=== PATIENT | female | born 1965 | race Caucasian/White ===

== ENCOUNTER → 2017-08-02 | Outpatient (CLI) | payer MEDICARE, MEDICAID ==
--- NOTE | 2017-08-02 16:04 | WOMENS IMAGING REPORT ---
EXAM DESCRIPTION: BILAT SCREENING MAMMO W/CAD COMPLETED DATE/TIME: 08/02/2017 1:20 pm REASON FOR STUDY: ROUTINE SCREENING; Z12.31 Z12.31 ENCNTR SCREEN MAMMOGRAM FOR MALIGNANT NEOPLASM O F [place] COMPARISON: 07/25/2016 TECHNIQUE: Standard craniocaudal and mediolateral oblique views of each breast recorded using [employer] acquisition. LIMITATIONS: None. FINDINGS: Findings present which are benign by mammographic criteria. No suspicious masses, calcifi cations or architectural distortion. Pertinent benign findings: Benign bilateral breast calcifications. Stable bilateral breast nodules. Read with the assistance of CAD. .[facility] - R2 Cenova Version 1.3 .[facility] - R2 Cenova Version 1.3 .[facility] - R2 Cenova Version 2.4 .[facility] [place] [place] - R2 Cenova Version 2.4 .[facility] - R2 [employer] Machine Operator Version 9.2 Benign mammographic findings may include one or more of the following: Smooth masses, popcorn/rim/co arse calcifications, asymmetries, post-procedure changes, and lesions with long-standing stability. IMPRESSION: BENIGN MAMMOGRAPHIC FINDINGS. BIRADS 2 BREAST DENSITY: c. The breasts are heterogeneously dense, which may obscure small masses. BIRAD: 2 BENIGN FINDING(S) RECOMMENDATION: ROUTINE SCREENING Please consider bilateral screening tomosynthesis in July 2018 COMMENT: The patient has been notified of the results by letter per SA requirements. Additional no tification policies are in place for contacting patient with suspicious or incomplete findings. Quality ID #[id number]: The [employer] recommends an annual screening mammogram for women aged 40 years or over. This facility utilizes a reminder system to ensure that all patients receive reminder letters, and/or direct phone calls for appointments. This includes reminders for routine scr eening mammograms, diagnostic mammograms, or other Breast Imaging Interventions when appropriate. Th is patient will be placed in the appropriate reminder system. The [employer] (ACR) has developed recommendations for screening MRI of the breast s in certain patient populations, to be used in conjunction with mammography. Breast MRI surveillanc e may be appropriate for women with more than 20% lifetime risk of developing breast cancer as deter mined by genetic testing, significant family history of the disease, or history of mantle radiation f or Hodgkins Disease. ACR Practice Guidelines 2008. TECHNICAL DOCUMENTATION: FINDING NUMBER: (1) ASSESSMENT: (1) JOB ID: [id number] [employer]- All Rights Reserved
== END ==
LOC: WI 13:09
PROVIDERS: ATTEND Family Medicine
DX: Z12.31 Encounter for screening mammogram for malignant neoplasm of breast (principal)
CPT/HCPCS: 77067; G0202

== ENCOUNTER → 2017-09-17 | Outpatient (CLI) | payer MEDICARE, MEDICAID ==
--- NOTE | 2017-09-17 16:22 | RADIOLOGY REPORT (SQ) ---
EXAM DESCRIPTION: ABDOMEN 2 VIEWS COMPLETED DATE/TIME: 09/17/2017 2:49 pm REASON FOR STUDY: DIARRHEA (R19.7) R19.7 DIARRHEA, UNSPECIFIED COMPARISON: Abdominal films 09/12/2015 NUMBER OF VIEWS: Two views. TECHNIQUE: Supine and upright radiographic images of the abdomen acquired. LIMITATIONS: None. FINDINGS: FREE AIR: None. No abnormal gas collections. LUNG BASES: Clear. BOWEL GAS PATTERN: Nonobstructive pattern. No dilated loops or air fluid levels. CALCIFICATIONS: No suspicious calcifications. SOFT TISSUES: No gross mass or suggestion of organomegaly. HARDWARE: None in the abdomen. BONES: Convex leftward lower thoracic/ upper lumbar curvature OTHER: No other significant finding. IMPRESSION: Nonobstructive bowel gas pattern TECHNICAL DOCUMENTATION: JOB ID: [id number] [employer]- All Rights Reserved
== END ==
LOC: RAD 14:33
PROVIDERS: ATTEND Family Medicine
DX: R19.7 Diarrhea, unspecified (principal)
CPT/HCPCS: 74020

== ENCOUNTER 2017-11-14 05:40 | Emergency (ER) | payer MEDICARE, MEDICAID ==
[2017-11-14] MEDS ORDERED: NORMAL SALINE 1000 ML 1,000 ML IV PRN (06:19)
--- NOTE | 2017-11-14 06:19 | ER Document Report ---
ED General - General Chief Complaint: Nausea/Vomiting Stated Complaint: VOMITING BLOOD Time Seen by Provider: 11/14/17 06:19 Mode of Arrival: Ambulatory Information source: Patient, Parent Notes: 51-year-old female history of mental retardation presents with complaints of vomiting dark blood twice overnight. Mother notes this is happened 2 times prior once requiring transfusion. Patient had an endoscopy and no source of the bleeding was noted. mother did note she has an ulcer TRAVEL OUTSIDE OF THE [place] IN LAST 30 DAYS: No - HPI Onset: Yesterday Onset/Duration: Sudden Quality of pain: No pain Severity: Mild Pain Level: Denies Associated symptoms: Nausea, Vomiting Exacerbated by: Denies Relieved by: Denies Similar symptoms previously: Yes Recently seen / treated by doctor: Yes - Related Data Allergies/Adverse Reactions: No Known Allergies Allergy (Verified 09/12/15 12:36) Past Medical History - Social History Smoking Status: Never Smoker Cigarette use (# per day): No Chew tobacco use (# tins/day): No Smoking Education Provided: No Family History: Reviewed & Not Pertinent - Past Medical History Cardiac Medical History: Reports: Hx Hypertension Neurological Medical History: Denies: Hx Seizures Malignancy Medical History: Reports: Hx Ovarian Cancer GI Medical History: Reports: Hx Ulcer Past Surgical History: Reports: Hx Abdominal Surgery - hernia, Hx Hysterectomy Review of Systems - Review of Systems Notes: REVIEW OF SYSTEMS: CONSTITUTIONAL : Denies fever, chills, or sweats. Denies recent illness. EENT: Denies eye, ear, throat, or mouth pain or symptoms. Denies nasal or sinus congestion or discharge. Denies throat, tongue, or mouth swelling or difficulty swallowing. CARDIOVASCULAR: Denies chest pain. Denies palpitations or racing or irregular heart beat. Denies ankle edema. RESPIRATORY: Denies cough, cold, or chest congestion. Denies shortness of breath, difficulty breathing, or wheezing. GASTROINTESTINAL: admits ot vomiting blood 2 times dark blood GENITOURINARY: Denies difficulty urinating, painful urination, burning, frequency, blood in urine, or discharge. FEMALE GENITOURINARY: Denies vaginal bleeding, heavy or abnormal periods, irregular periods. Denies vaginal discharge or odor. MUSCULOSKELETAL: Denies back or neck pain or stiffness. Denies joint pain or swelling. SKIN: Denies rash, lesions or sores. HEMATOLOGIC : Denies easy bruising or bleeding. LYMPHATIC: Denies swollen, enlarged glands. NEUROLOGICAL: Denies confusion or altered mental status. Denies passing out or loss of consciousness. Denies dizziness or lightheadedness. Denies headache. Denies weakness or paralysis or loss of use of either side. Denies problems with gait or speech. Denies sensory loss, numbness, or tingling. Denies seizures. PSYCHIATRIC: Denies anxiety or stress. Denies depression, suicidal ideation, or homicidal ideation. ALL OTHER SYSTEMS REVIEWED AND NEGATIVE. PHYSICAL EXAMINATION: GENERAL: Well-appearing, well-nourished and in no acute distress. HEAD: Atraumatic, normocephalic. EYES: Pupils equal round and reactive to light, extraocular movements intact, conjunctiva are normal. ENT: Nares patent, oropharynx clear without exudates. Moist mucous membranes. NECK: Normal range of motion, supple without lymphadenopathy LUNGS: Breath sounds clear to auscultation bilaterally and equal. No wheezes rales or rhonchi. HEART: tachycardic ABDOMEN: Soft, nontender, nondistended abdomen. No guarding, no rebound. No masses appreciated. Female : deferred Musculoskeletal: Normal range of motion, no pitting or edema. No cyanosis. NEUROLOGICAL: Cranial nerves grossly intact. baseline mentation PSYCH: Normal mood, normal affect. SKIN: pale appearing Dictation was performed using [employer] voice recognition software Physical Exam - Vital signs Vitals: Temp Pulse Resp BP Pulse Ox 98.5 F 126 H 20 118/66 93 11/14/17 05:45 11/14/17 05:45 11/14/17 05:45 11/14/17 05:45 11/14/17 05:45 Course - Re-evaluation Re-evalutation: 11/14/17 06:34 Patient immediately placed on monitor IV fluids started 11/14/17 07:55 Pt noted ot have hgb of 7.9, still tachycardic after fluids at 135, will transfuse 2 untis protonix has been ordered, no alcohol history. adam walden paged since we do not have GI 11/14/17 09:17 Dr Martinez awaiting for bed though 11/14/17 1245 Pt stable upon transfer - Vital Signs Vital signs: Temp Pulse Resp BP Pulse Ox 98.6 F 123 H 20 145/80 H 98 11/14/17 12:35 11/14/17 12:35 11/14/17 12:35 11/14/17 12:35 11/14/17 12:35 - Laboratory Result Diagrams: 11/14/17 07:08 11/14/17 07:08 Laboratory results interpreted by me: 11/14/17 11/14/17 11/14/17 07:08 07:08 07:08 RBC 3.30 L Hgb 7.9 L Hct 24.6 L MCV 75 L MCH 23.9 L RDW 16.0 H BUN 40 H Glucose 119 H Total Protein 5.7 L Crossmatch See Detail Critical Care Note - Critical Care Note Total time excluding time spent on procedures (mins): 57 Comments: 57 minutes of critical care time spent in direct contact evaluating and reevaluating the patient, treating symptoms, reviewing labs and studies and speaking with family and consultants excluding any procedures Discharge - Discharge Clinical Impression: Upper gastrointestinal bleed, Tachycardia Anemia Qualifiers: Anemia type: unspecified type Qualified Code(s): D64.9 - Anemia, unspecified Condition: Stable Disposition: [facility] Referrals: ARTURO SEGURA MD [Primary Care Provider] - Follow up as needed
[2017-11-14 07:28] LABS: ABSOLUTE LYMPHOCYTES (AUTO) 1.1 10^3/uL (0.5-4.7); ABSOLUTE MONOCYTES (AUTO) 0.4 10^3/uL (0.1-1.4); ABSOLUTE NEUT (AUTO) 4.2 10^3/uL (1.7-8.2); BASOPHILS % (AUTO) 0.8 % (0-2); EOSINOPHILS % (AUTO) 0.6 % (0-6); HEMATOCRIT 24.6 % (36.0-47.0); HGB HCT DIFFERENCE -0.9; MEAN CORPUSCULAR HEMOGLOBIN 23.9 pg (27.0-33.4); MEAN CORPUSCULAR VOLUME 75 fl (80-97); MONOCYTES % (AUTO) 6.9 % (3-13); SEGMENTED NEUTROPHILS % (AUTO) 72.7 % (42-78); WHITE BLOOD COUNT 5.7 10^3/uL (4.0-10.5)
[2017-11-14 07:47] LABS: HEMOGLOBIN 7.9 g/dL (12.0-15.5)
[2017-11-14] MEDS ORDERED: NORMAL SALINE 250 ML IV PRN ×2 (07:53)
[2017-11-14] MEDS ORDERED: PANTOPRAZOLE SODIUM 40 MG VIAL IV ONE (07:53)
[2017-11-14 07:57] LABS: ALANINE AMINOTRANSFERASE 24 U/L (9-52); ALBUMIN 3.5 g/dL (3.5-5.0); ALKALINE PHOSPHATASE 82 U/L (38-126); ANION GAP 8 (5-19); ASPARTATE AMINO TRANSFERASE 15 U/L (14-36); BILIRUBIN,DIRECT 0.1 mg/dL (0.0-0.4); BILIRUBIN,TOTAL 0.2 mg/dL (0.2-1.3); BLOOD UREA NITROGEN 40 mg/dL (7-20); CALCIUM 8.9 mg/dL (8.4-10.2); CARBON DIOXIDE 27 mmol/L (22-30); CHLORIDE 107 mmol/L (98-107); CREATININE RESULT 0.52 mg/dL (0.52-1.25); GLUCOSE 119 mg/dL (75-110); SODIUM 141.9 mmol/L (137-145); TOTAL PROTEIN 5.7 g/dL (6.3-8.2)
[2017-11-14] MEDS ORDERED: PANTOPRAZOLE SODIUM 40 MG VIAL IV PRN (07:58)
[2017-11-14 10:34] LABS: PROTHROMBIN TIME 13.6 SEC (11.4-15.4)
[2017-11-14 12:41] VITALS: BP 145/80
== END 2017-11-14 12:51 | disposition short-term general hospital (02) ==
LOC: ER 05:40
DX: K92.2 Gastrointestinal hemorrhage, unspecified (principal); K92.0 Hematemesis; D64.9 Anemia, unspecified; I10 Essential (primary) hypertension; Z85.43 Personal history of malignant neoplasm of ovary; R00.0 Tachycardia, unspecified
CPT/HCPCS: 99291; 96361; 96374; 86900; 86901; 36415; 36430; 86850; 85025; 85610; 80053; 86920; P9016; C9113; J7030; J7050; S0164

== ENCOUNTER → 2018-08-04 | Outpatient (CLI) | payer MEDICARE, MEDICAID ==
--- NOTE | 2018-08-04 14:17 | WOMENS IMAGING REPORT ---
EXAM DESCRIPTION: 3D SCREENING MAMMO BILAT COMPLETED DATE/TIME: 08/04/2018 10:24 am REASON FOR STUDY: SCREENING MAMMO Z12.31 ENCNTR SCREEN MAMMOGRAM FOR MALIGNANT NEOPLASM OF [place] COMPARISON: 2015, 2016 TECHNIQUE: Standard craniocaudal and mediolateral oblique views of each breast recorded using digita l acquisition and breast tomosynthesis. LIMITATIONS: None. FINDINGS: No masses, calcifications or architectural distortion. No areas of suspicion. Read with the assistance of CAD. .[facility] - R2 Cenova Version 1.3 .[facility] - R2 Cenova Version 1.3 .[facility] - R2 Cenova Version 2.4 .[facility] [place] - R2 Cenova Version 2.4 .[facility] - R2 Rot[employer] Dryer Operator Version 9.2 IMPRESSION: NORMAL MAMMOGRAM. BIRADS 1. BREAST DENSITY: b. There are scattered areas of fibroglandular density. BIRAD: 1 NEGATIVE RECOMMENDATION: ROUTINE SCREENING Please continue yearly bilateral screening tomosynthesis in July 2019 COMMENT: The patient has been notified of the results by letter per MQSA requirements. Additional no tification policies are in place for contacting patient with suspicious or incomplete findings. Quality ID #225: The [employer] recommends an annual screening mammogram for women aged 40 years or over. This facility utilizes a reminder system to ensure that all patients receive reminder letters, and/or direct phone calls for appointments. This includes reminders for routine scr eening mammograms, diagnostic mammograms, or other Breast Imaging Interventions when appropriate. Th is patient will be placed in the appropriate reminder system. The [employer] (ACR) has developed recommendations for screening MRI of the breast s in certain patient populations, to be used in conjunction with mammography. Breast MRI surveillanc e may be appropriate for women with more than 20% lifetime risk of developing breast cancer as deter mined by genetic testing, significant family history of the disease, or history of mantle radiation f or Hodgkins Disease. ACR Practice Guidelines 2008. DBT Technology DBT is a type of tomographic mammography. With conventional mammography, overlapping breast tissue ma y make lesions difficult to detect, even with good compression. DBT uses an x-ray tube that rotates a round the breast, taking images at different angles. These images are then combined to create thin sl ices of the breast that the radiologist can view as a 3D reconstruction. The [employer] unit can perform full-field digital mammograms (2D imaging); or DBT (3D imaging); or both, in a combination mode that quickly performs both the mammogram and the tomosynthesis scan while the breast is still compressed. PQRS 6045F: Fluoroscopic imaging is not utilized for breast tomosynthesis. TECHNICAL DOCUMENTATION: FINDING NUMBER: (1) ASSESSMENT: (1) JOB ID: [id number] [employer]- All Rights Reserved Reading location - IP/workstation name: [email or web address]
== END ==
LOC: WI 10:16
PROVIDERS: ATTEND Family Medicine
DX: Z12.31 Encounter for screening mammogram for malignant neoplasm of breast (principal)
CPT/HCPCS: 77063; 77067

== ENCOUNTER → 2019-10-19 | Outpatient (CLI) | payer MEDICARE, MEDICAID ==
--- NOTE | 2019-10-19 14:44 | WOMENS IMAGING REPORT ---
EXAM DESCRIPTION: 3D SCREENING MAMMO BILAT COMPLETED DATE/TIME: 10/19/2019 2:01 pm REASON FOR STUDY: Z12.31 ENCOUNTER FOR SCREENING MAMMOGRAM FOR MALIGNANT NEOPLASM OF BREAST Z12.31 ENCNTR SCREEN MAMMOGRAM FOR MALIGNANT NEOPLASM OF [place] COMPARISON: Multiple since 2016 EXAM PARAMETERS: Standard craniocaudal and mediolateral oblique views of each breast recorded using digital acquisition and breast tomosynthesis. Read with the assistance of CAD. .[facility] - [employer] Program Manager Version 9.2 LIMITATIONS: None. FINDINGS: RIGHT BREAST MASSES: Subcentimeter mammographic mass right breast far upper outer quadrant, about 8 cm from the ni pple for which additional diagnostic mammograms are recommended including right breast 90 mediolater al view, cone compression in the CC and MLO orientations. If this mass persists, then ultrasound wou ld be required for followup CALCIFICATIONS: No new or suspicious calcifications. ARCHITECTURAL DISTORTION: None. ASYMMETRY: None noted. OTHER: No other significant findings. LEFT BREAST MASSES: No suspicious masses. CALCIFICATIONS: No new or suspicious calcifications. ARCHITECTURAL DISTORTION: None. ASYMMETRY: None noted. OTHER: No other significant findings. IMPRESSION: No mammographic/ tomosynthesis evidence for malignancy left breast. Subcentimeter mammographic mass right breast upper outer quadrant 11 to 12 o'clock position, for whic h additional diagnostic mammograms and ultrasound are recommended 0 Incomplete: Needs Additional Imaging Evaluation and/or prior Mammograms for Comparison. BREAST DENSITY: b. There are scattered areas of fibroglandular density. BIRAD: ASSESSMENT: 0 Incomplete: Needs Additional Imaging Evaluation and/or prior Mammograms for C omparison. RECOMMENDATION: RECOMMENDED FOLLOW-UP: Additional right breast diagnostic mammograms and ultrasound The patient will be contacted for additional imaging. COMMENT: The patient has been notified of the results by letter per MQSA requirements. Additional no tification policies are in place for contacting patient with suspicious or incomplete findings. Quality ID #225: The [employer] recommends an annual screening mammogram for women aged 40 years or over. This facility utilizes a reminder system to ensure that all patients receive reminder letters, and/or direct phone calls for appointments. This includes reminders for routine scr eening mammograms, diagnostic mammograms, or other Breast Imaging Interventions when appropriate. Th is patient will be placed in the appropriate reminder system. TECHNICAL DOCUMENTATION: FINDING NUMBER: (1) ASSESSMENT: (1) JOB ID: [id number] [employer]- All Rights Reserved Reading location - IP/workstation name: [email or web address]
== END ==
LOC: WI 13:26
PROVIDERS: ATTEND Family Medicine
DX: Z12.31 Encounter for screening mammogram for malignant neoplasm of breast (principal)
CPT/HCPCS: 77063; 77067

== ENCOUNTER → 2019-10-28 | Outpatient (CLI) | payer MEDICARE, MEDICAID ==
--- NOTE | 2019-10-28 13:43 | WOMENS IMAGING REPORT ---
EXAM DESCRIPTION: RIGHT DIAGNOSTIC MAMMO W/CAD COMPLETED DATE/TIME: 10/28/2019 1:30 pm REASON FOR STUDY: N63.11 UNSPECIFIED LUMP IN THE RIGHT BREAST, UPPER OUTER QUADRANT N63.11 UNSPECIF IED LUMP IN THE RIGHT BREAST, UPPER OUTER IRVING COMPARISON: Digital tomosynthesis bilateral screening mammogram dated 10/19/2019 common 08/04/2018 an d digital bilateral screening mammograms dated 08/02/2017 and 07/25/2016. EXAM PARAMETERS: Standard craniocaudal and mediolateral oblique images of the breast recorded with d igital acquisition. Read with the assistance of CAD. .[facility] - R2 Capture Manager Version 9.2 LIMITATIONS: None. FINDINGS: BREAST LATERALITY: RIGHT MASSES: On the spot compression and additional views, the mass like area in the upper-outer quadrant of the breast appears to efface and represent glandular tissue. CALCIFICATIONS: No new or suspicious calcifications. ARCHITECTURAL DISTORTION: None. ASYMMETRY: None noted. OTHER: No other significant findings. IMPRESSION: 1. Stable mammographic appearance to the Right breast. BREAST DENSITY: b. There are scattered areas of fibroglandular density. BIRAD: ASSESSMENT: 2 Benign findings. RECOMMENDATION: 1. Routine screening mammogram. COMMENT: The patient has been notified of the results by letter per MQSA requirements. Additional no tification policies are in place for contacting patient with suspicious or incomplete findings. Quality ID #225: The [employer] recommends an annual screening mammogram for women aged 40 years or over. This facility utilizes a reminder system to ensure that all patients receive reminder letters, and/or direct phone calls for appointments. This includes reminders for routine scr eening mammograms, diagnostic mammograms, or other Breast Imaging Interventions when appropriate. Th is patient will be placed in the appropriate reminder system. TECHNICAL DOCUMENTATION: FINDING NUMBER: (1) ASSESSMENT: (1) JOB ID: [id number] [employer]- All Rights Reserved Reading location - IP/workstation name: [email or web address]
== END ==
LOC: WI 13:00
PROVIDERS: ATTEND Family Medicine
DX: N63.11 Unspecified lump in the right breast, upper outer quadrant (principal)
CPT/HCPCS: 77065

== ENCOUNTER 2020-12-06 15:59 | Inpatient (IN) | payer MEDICARE, MEDICAID ==
[2020-12-06 17:07] LABS: VENOUS BLOOD BASE EXCESS 3.4 mmol/L; VENOUS BLOOD HCO3 27.8 mmol/L (20-32); VENOUS BLOOD PCO2 41.7 mmHg (35-63); VENOUS BLOOD PH 7.44 (7.30-7.42)
[2020-12-06 17:11] LABS: ABSOLUTE LYMPHOCYTES (AUTO) 0.8 10^3/uL (0.5-4.7); ABSOLUTE MONOCYTES (AUTO) 0.2 10^3/uL (0.1-1.4); ABSOLUTE NEUT (AUTO) 1.8 10^3/uL (1.7-8.2); BASOPHILS % (AUTO) 0.5 % (0-2); EOSINOPHILS % (AUTO) 0.5 % (0-6); HEMATOCRIT 39.8 % (36.0-47.0); HEMOGLOBIN 13.5 g/dL (12.0-15.5); LYMPHOCYTES % (AUTO) 26.7 % (13-45); MEAN CORPUSCULAR HEMOGLOBIN 26.8 pg (27.0-33.4); MEAN CORPUSCULAR HGB CONC 33.8 g/dL (32.0-36.0); MEAN CORPUSCULAR VOLUME 79 fl (80-97); MONOCYTES % (AUTO) 6.8 % (3-13); PLATELET COUNT 135 10^3/uL (150-450); RED BLOOD COUNT 5.03 10^6/uL (3.72-5.28); RED CELL DISTRIBUTION WIDTH 14.1 % (11.5-14.0); SEGMENTED NEUTROPHILS % (AUTO) 65.5 % (42-78); TOTAL CELLS COUNTED % (AUTO) 100 %; WHITE BLOOD COUNT 2.8 10^3/uL (4.0-10.5)
[2020-12-06 17:24] LABS: CALCIUM 8.8 mg/dL (8.4-10.2)
[2020-12-06 17:25] LABS: ALBUMIN 3.5 g/dL (3.5-5.0); ALKALINE PHOSPHATASE 70 U/L (38-126); ASPARTATE AMINO TRANSFERASE 71 U/L (14-36); BILIRUBIN,DIRECT 0.2 mg/dL (0.0-0.4); BILIRUBIN,TOTAL 0.4 mg/dL (0.2-1.3); BLOOD UREA NITROGEN 20 mg/dL (7-20); GLUCOSE 101 mg/dL (75-110); POTASSIUM 4.1 mmol/L (3.6-5.0); TOTAL PROTEIN 6.2 g/dL (6.3-8.2)
--- NOTE | 2020-12-06 17:26 | ER Document Report ---
ED General - General Chief Complaint: Shortness Of Breath Stated Complaint: FEVER,COUGH Time Seen by Provider: 12/06/20 16:27 Information source: Patient, Relative - sister TRAVEL OUTSIDE OF THE [place] IN LAST 30 DAYS: No - HPI Notes: Patient is brought in by family secondary to shortness of breath and decreased oxygen saturation at home. Patient has a home pulse oximeter. Patient has mental delay and is brought in by family. Family states that the patient tested positive for Covid within the last week and that other family members are also positive. Patient has had a dry cough. Patient is had some diarrhea but no vomiting. She has had fevers up to 101 at home. - Related Data Allergies/Adverse Reactions: No Known Allergies Allergy (Verified 12/06/20 17:04) Past Medical History - General Information source: Patient, Relative - Sister - Social History Smoking Status: Never Smoker Frequency of alcohol use: None Drug Abuse: None Family History: Reviewed & Not Pertinent Patient has homicidal ideation: No - Past Medical History Cardiac Medical History: Reports: Hx Hypertension Neurological Medical History: Denies: Hx Seizures Renal/ Medical History: Denies: Hx Peritoneal Dialysis Malignancy Medical History: Reports: Hx Ovarian Cancer GI Medical History: Reports: Hx Ulcer Past Surgical History: Reports: Hx Abdominal Surgery - hernia, Hx Hysterectomy Review of Systems - Review of Systems Constitutional: Fever, Recent illness Cardiovascular: denies: Chest pain, Edema Respiratory: Cough, Short of breath -: Yes All other systems reviewed and negative Physical Exam - Vital signs Vitals: Temp Pulse Resp BP Pulse Ox 98.3 F 113 H 24 H 132/71 H 89 L 12/06/20 16:08 12/06/20 16:08 12/06/20 16:08 12/06/20 16:08 12/06/20 16:08 Interpretation: Tachycardic, Hypoxic - General General appearance: Alert In distress: Mild - HEENT Head: Normocephalic, Atraumatic Eyes: Normal Pupils: PERRL - Respiratory Respiratory status: Respiratory distress - mild Chest status: Nontender Breath sounds: Decreased air movement Chest palpation: Normal - Cardiovascular Rhythm: Tachycardia Heart sounds: Normal auscultation Murmur: No - Abdominal Inspection: Normal Distension: No distension Bowel sounds: Normal Tenderness: Nontender Organomegaly: No organomegaly - Back Back: Normal, Nontender - Extremities General upper extremity: Normal inspection, Nontender, Normal color, Normal ROM, Normal temperature General lower extremity: Normal inspection, Nontender, Normal color, Normal ROM, Normal temperature. No: Rosie's sign - Neurological Cognition: Confused [place] Coma Scale Eye Opening: Spontaneous [place] Coma Scale Verbal: Confused E[place] Coma Scale Motor: Obeys Commands [place] Coma Scale Total: 14 Speech: Normal - Psychological Associated symptoms: Agitated, Anxious - Skin Skin Temperature: Warm Skin Moisture: Dry Skin Color: Normal Course - Re-evaluation Re-evalutation: 12/06/20 17:23 Patient with developmental delay is brought in by family due to low oxygen saturations and shortness of breath. Patient has a known positive history of Covid with other family members being positive as well. Chest x-ray is consistent with Covid. Patient is tachypneic and hypoxic. She will require inpatient evaluation and treatment. - Vital Signs Vital signs: Temp Pulse Resp BP Pulse Ox 98.8 F 113 H 19 148/92 H 97 12/06/20 17:01 12/06/20 16:08 12/06/20 17:01 12/06/20 17:00 12/06/20 17:15 - Laboratory Results Result Diagrams: 12/06/20 16:58 12/06/20 16:58 Laboratory Results Interpreted: 12/06/20 12/06/20 12/06/20 16:58 16:58 16:58 WBC 2.8 L MCV 79 L MCH 26.8 L RDW 14.1 H Plt Count 135 L Fibrinogen VBG pH 7.44 H Carbon Dioxide 34 H Anion Gap 4 L AST 71 H ALT 40 H Total Protein 6.2 L 12/06/20 16:58 WBC MCV MCH RDW Plt Count Fibrinogen 499 H VBG pH Carbon Dioxide Anion Gap AST ALT Total Protein Critical Laboratory Results Reviewed: Yes Attending or Supervising Physician who Reviewed Labs: MERCEDES GHOSH - Radiology Results Critical Radiology Results Reviewed: Yes Attending or Supervising Physician who Reviewed Radiology: MERCEDES GHOSH Critical Care Note - Critical Care Note Total time excluding time spent on procedures (mins): 55 Comments: Approximately 55 minutes of critical care time were spent on this hypoxic, bilateral Covid pneumonia patient. This time is spent doing multiple patient reassessments. It was spent reviewing imaging and laboratory values. It is spent talking with multiple consultants and family. Discharge - Discharge Clinical Impression: Pneumonia due to COVID-19 virus Condition: Serious Disposition: ADMITTED INPATIENT Admitting Provider: Nancy (Hospitalist) Unit Admitted: [facility]
[2020-12-06 17:30] LABS: CARBON DIOXIDE 34 mmol/L (22-30); CHLORIDE 103 mmol/L (98-107)
[2020-12-06 17:32] LABS: ANION GAP 4 (5-19)
[2020-12-06 17:42] LABS: C-REACTIVE PROTEIN 41.2 mg/L (<10.0)
--- NOTE | 2020-12-06 17:44 | RADIOLOGY REPORT (SQ) ---
EXAM DESCRIPTION: CHEST SINGLE VIEW IMAGES COMPLETED DATE/TIME: 12/06/2020 5:07 pm REASON FOR STUDY: sob COMPARISON: 2014 EXAM PARAMETERS: NUMBER OF VIEWS: One view. TECHNIQUE: Single frontal radiographic view of the chest acquired. RADIATION DOSE: NA LIMITATIONS: None. FINDINGS: LUNGS AND PLEURA: Elevated left hemidiaphragm. There is focal opacification just above th e left hemidiaphragm. MEDIASTINUM AND HILAR STRUCTURES: No masses. Contour normal. HEART AND VASCULAR STRUCTURES: Heart normal in size. Normal vasculature. BONES: Scoliosis. HARDWARE: None in the chest. OTHER: No other significant finding. IMPRESSION: Elevated left hemidiaphragm. Cannot exclude a limited pneumonia in the left base. Scol iosis. TECHNICAL DOCUMENTATION: JOB ID: [id number] [employer]- All Rights Reserved Reading location - IP/workstation name: [email or web address]
[2020-12-06] MEDS ORDERED: ONDANSETRON HCL INJ/PF 4 MG/2 ML SDV IV PRN (18:20)
[2020-12-06] MEDS ORDERED: ACETAMINOPHEN 325 MG TABLET PO PRN (18:20)
[2020-12-06] MEDS ORDERED: LORAZEPAM 1 MG TABLET PO PRN (18:26)
[2020-12-06] MEDS ORDERED: LORAZEPAM INJ 2 MG/1 ML VIAL IV PRN (18:26)
--- NOTE | 2020-12-06 18:43 | PDOC H&P ---
History of Present Illness Admission Date/PCP: 12/06/20 17:51 ARTURO SEGURA MD Patient complains of: low oxygen level at home History of Present Illness: ISABEL FLOR is a 55 year old female with severe cognitive impairment, sinus tachycardia, hiatal hernia, anxiety who presents to the ED from home due to low oxygen saturation at home. She and the rest of her family all tested positive for Covid on 11/29/2020. At home, she has had a dry cough and fevers to 101 F. Her family states that she has a fast heart rate and respiratory rate at baseline. They have been checking her oxygen saturations at home on a pulse oximeter, and she was saturating 89% on RA at rest, so they brought her in to be evaluated. In the ED, she has tachycardia and tachypnea. O2 saturation was 87-89% on RA and improved to mid-90s on 2L via NC. CXR showed possible LLL infiltrate. Past Medical History Cardiac Medical History: Reports: Other - tachycardia Pulmonary Medical History: Reports: None EENT Medical History: Reports: None Neurological Medical History: Reports: None Denies: Seizures Endocrine Medical History: Reports: None Renal/ Medical History: Reports: None Malignancy Medical History: Reports: None, Ovarian Cancer GI Medical History: Reports: Hiatal Hernia Psychiatric Medical History: Reports: General Anxiety Disorder, Other - MR Traumatic Medical History: Reports: None Hematology: Reports: None Infectious Medical History: Reports: None Past Surgical History Past Surgical History: Reports: Hysterectomy Social History Information Source: Patient, Parent, Relative Lives with: Family Smoking Status: Never Smoker Electronic Cigarette use?: No Frequency of Alcohol Use: None Hx Recreational Drug Use: No Hx Prescription Drug Abuse: No - Advance Directive Resuscitation Status: Do Not Resuscitate Surrogate healthcare decision maker:: Jade Flor (mother) Family History Family History: Reviewed & Not Pertinent Parental Family History Reviewed: Yes Children Family History Reviewed: Yes Sibling(s) Family History Reviewed.: Yes Medication/Allergy Home Medications: Folic Acid 1 tab PO DAILY 09/12/15 Iron,Carb/Vit C/Vit B12/Folic [Iron 100 Plus Tablet] 1 tab PO Q2DAYS 09/12/15 [place]-3 Fatty Acids [Fish Oil] 1 tab PO DAILY 09/12/15 Lansoprazole [Prevacid 30 mg Odt Tablet] 30 mg PO BID@0600,1700 #60 tab.rap.dr 09/15/15 Metoprolol Tartrate [Lopressor 25 mg Tablet] 25 mg PO BID #60 tablet 09/15/15 Allergies/Adverse Reactions: No Known Allergies Allergy (Verified 12/06/20 17:04) Review of Systems ROS unobtainable: Due to mental status Physical Exam Vital Signs: Temp Pulse Resp BP Pulse Ox 98.8 F 113 H 25 H 145/71 H 94 12/06/20 17:01 12/06/20 16:08 12/06/20 18:01 12/06/20 18:00 12/06/20 18:01 Intake & Output 12/05/20 12/06/20 12/07/20 06:59 06:59 06:59 Weight 65.2 kg General appearance: PRESENT: mild distress - yelling that she does not want to stay in the hospital Eye exam: ABSENT: scleral icterus Mouth exam: PRESENT: moist Throat exam: ABSENT: post pharyngeal erythema Neck exam: ABSENT: JVD Respiratory exam: PRESENT: clear to auscultation andrea, symmetrical, tachypnea. ABSENT: crackles, wheezes Cardiovascular exam: PRESENT: tachycardia GI/Abdominal exam: PRESENT: normal bowel sounds, soft. ABSENT: guarding, rebound, tenderness Gentrourinary exam: ABSENT: indwelling catheter Extremities exam: ABSENT: pedal edema Musculoskeletal exam: PRESENT: ambulatory Neurological exam: PRESENT: alert, awake, oriented to person. ABSENT: oriented to place, oriented to time, oriented to situation Psychiatric exam: PRESENT: agitated, anxious Focused psych exam: PRESENT: restlessness Skin exam: ABSENT: jaundice, rash Results Laboratory Results: 12/06/20 16:58 12/06/20 16:58 12/06/20 12/06/20 12/06/20 16:58 16:58 16:58 WBC 2.8 L RBC 5.03 Hgb 13.5 Hct 39.8 MCV 79 L MCH 26.8 L MCHC 33.8 RDW 14.1 H Plt Count 135 L Seg Neutrophils % 65.5 VBG pH 7.44 H VBG pCO2 41.7 VBG HCO3 27.8 VBG Base Excess 3.4 Sodium 140.9 Potassium 4.1 Chloride 103 Carbon Dioxide 34 H Anion Gap 4 L BUN 20 Creatinine 0.63 Est GFR ( Amer) > 60 Glucose 101 Lactic Acid Calcium 8.8 Ferritin Total Bilirubin 0.4 AST 71 H Alkaline Phosphatase 70 C-Reactive Protein Total Protein 6.2 L Albumin 3.5 12/06/20 12/06/20 16:58 16:58 WBC RBC Hgb Hct MCV MCH MCHC RDW Plt Count Seg Neutrophils % VBG pH VBG pCO2 VBG HCO3 VBG Base Excess Sodium Potassium Chloride Carbon Dioxide Anion Gap BUN Creatinine Est GFR ( Amer) Glucose Lactic Acid 0.8 Calcium Ferritin 338.00 H Total Bilirubin AST Alkaline Phosphatase C-Reactive Protein 41.2 H Total Protein Albumin 12/06/20 16:58 Troponin I < 0.012 Impressions: Chest X-Ray 12/06/20 16:53 IMPRESSION: Elevated left hemidiaphragm. Cannot exclude a limited pneumonia in the left base. Scoliosis. Assessment and Plan - Diagnosis (1) Pneumonia due to COVID-19 virus Is this a current diagnosis for this admission?: Yes (2) Acute hypoxemic respiratory failure Is this a current diagnosis for this admission?: Yes (3) Hiatal hernia Is this a current diagnosis for this admission?: Yes (4) LFT elevation Is this a current diagnosis for this admission?: Yes (5) Leukopenia Is this a current diagnosis for this admission?: Yes (6) Anxiety Is this a current diagnosis for this admission?: Yes (7) Tachycardia Is this a current diagnosis for this admission?: Yes - Plan Summary Summary: ISABEL FLOR is a 55 year old female with severe cognitive impairment, sinus tachycardia, hiatal hernia, anxiety who presents to the ED from home due to low oxygen saturation at home. She and the rest of her family all tested positive fo r Covid on 11/29/2020. At home, she has had a dry cough and fevers to 101 F. Her family states that she has a fast heart rate and respiratory rate at baseline. They have been checking her oxygen saturations at home on a pulse oximeter, and she was saturating 89% on RA at rest, so they brought her in to be evaluated. In the ED, she has tachycardia and tachypnea. O2 saturation was 87-89% on RA and improved to mid-90s on 2L via NC. CXR showed possible LLL infiltrate. Pneumonia due to Covid-19 Acute Hypoxemic Respiratory Failure - start azithromycin, ivermectin, dexamethasone, Vit C, Vit D, Zinc - wean off O2 as tolerated for goal saturation >92% Leukopenia - likely due to acute viral infection - repeat CBC daily LFT Elevation - likely due to acute viral infection - repeat CMP daily Sinus tachycardia - restart home metoprolol Hiatal Hernia - restart home PPI BID Anxiety/Agitation - start home oral Ativan - will given Ativan IV PRN severe agitation if not responsive to oral medications or unwilling to take oral medications - fall precautions - consider sitter DVT ppx: Lovenox - Time Time Spent with patient: 35 or more minutes Anticipated Discharge Disposition: Home, Self Care Anticipated Discharge Timeframe: within 48 hours
--- NOTE | 2020-12-06 18:46 | ADVANCED CARE ---
- Diagnosis (1) Pneumonia due to COVID-19 virus Diagnosis Current: Yes (2) Acute hypoxemic respiratory failure Diagnosis Current: Yes (3) Hiatal hernia Diagnosis Current: Yes (4) LFT elevation Diagnosis Current: Yes (5) Leukopenia Diagnosis Current: Yes (6) Anxiety Diagnosis Current: Yes (7) Tachycardia Diagnosis Current: Yes Attendance: Jade Lee (mother) Resuscitation Status: Do Not Resuscitate Discussion: Discussed above diagnoses and goals of care with patients mother, Jade, who is the patient's decision maker. Goal is to minimize interventions and reduce Michelle's time in the hospital and her agitation/anxiety associated with being here/alone. Code status is DNR/DNI but family is okay with NIPPV (if Michelle is able to tolerate it). Time Spent: >16 minutes
[2020-12-06] MEDS: ACETAMINOPHEN 325 MG TABLET PO SCH (18:48)
[2020-12-06] MEDS ORDERED: DEXAMETHASONE SOD PHOS INJ 10 MG/1 ML VIAL IV ONE (19:00)
[2020-12-06] MEDS ORDERED: AZITHROMYCIN 250 MG TABLET PO ONE (19:30)
[2020-12-06] MEDS ORDERED: IVERMECTIN 3 MG TABLET PO ONE (19:30)
[2020-12-06] MEDS ORDERED: METOPROLOL TARTRATE 25 MG TABLET PO SCH (22:00)
[2020-12-06] MEDS: GUAIFENESIN 600 MG TABLET.SA PO SCH (22:26)
[2020-12-07] MEDS: PANTOPRAZOLE SODIUM 40 MG TABLET.DR PO SCH ×2 (05:14→16:57)
[2020-12-07] MEDS: ACETAMINOPHEN 325 MG TABLET PO SCH ×3 (05:15→21:07)
[2020-12-07 06:38] LABS: HEMATOCRIT 38.3 % (36.0-47.0); MEAN CORPUSCULAR HEMOGLOBIN 26.5 pg (27.0-33.4); MEAN CORPUSCULAR VOLUME 78 fl (80-97); PLATELET COUNT 120 10^3/uL (150-450); RED CELL DISTRIBUTION WIDTH 14.2 % (11.5-14.0)
[2020-12-07 06:43] LABS: ALBUMIN 3.3 g/dL (3.5-5.0); ALKALINE PHOSPHATASE 73 U/L (38-126); ASPARTATE AMINO TRANSFERASE 92 U/L (14-36); BILIRUBIN,DIRECT 0.2 mg/dL (0.0-0.4); BILIRUBIN,TOTAL 0.4 mg/dL (0.2-1.3); BLOOD UREA NITROGEN 20 mg/dL (7-20); C-REACTIVE PROTEIN 43.3 mg/L (<10.0); CALCIUM 8.7 mg/dL (8.4-10.2); CARBON DIOXIDE 32 mmol/L (22-30); CHLORIDE 103 mmol/L (98-107); GLUCOSE 120 mg/dL (75-110); POTASSIUM 3.8 mmol/L (3.6-5.0); TOTAL PROTEIN 5.9 g/dL (6.3-8.2)
[2020-12-07 06:49] LABS: WHITE BLOOD COUNT 1.4 10^3/uL (4.0-10.5)
[2020-12-07 07:01] LABS: ABSOLUTE LYMPHOCYTES# (MANUAL) 0.2 10^3/uL (0.5-4.7); ABSOLUTE MONOCYTES # (MANUAL) 0.1 10^3/uL (0.1-1.4); BASOPHILS % (MANUAL) 0 % (0-2); EOSINOPHILS % (MANUAL) 0 % (0-6); LYMPHOCYTES % (MANUAL) 16 % (13-45); MONOCYTES % (MANUAL) 8 % (3-13); SEGMENTED NEUTROPHILS % (MAN) 76 % (42-78); TOTAL CELLS COUNTED 50
[2020-12-07 07:02] LABS: ANISOCYTOSIS SLIGHT; OVALOCYTES SLIGHT; POIKILOCYTOSIS SLIGHT
[2020-12-07 07:03] LABS: PLATELET COMMENT DECREASED
[2020-12-07 07:19] LABS: ANION GAP 4 (5-19)
[2020-12-07] MEDS: IPRATROPIUM/ALBUTEROL 0.5-2.5 MG/3 ML AMPUL NEB SCH ×4 (09:30→20:55)
[2020-12-07] MEDS: ASCORBIC ACID 500 MG TABLET PO SCH ×2 (09:33→16:59)
[2020-12-07] MEDS: ZINC SULFATE 220 MG CAPSULE PO SCH (09:33)
[2020-12-07] MEDS: ASPIRIN 81 MG TABLET, ENT COATED PO SCH (09:33)
[2020-12-07] MEDS: CHOLECALCIFEROL (D3) 1,000 UNIT (25 MCG) TABLET PO SCH (09:33)
[2020-12-07] MEDS: AZITHROMYCIN 250 MG TABLET PO SCH (09:33)
[2020-12-07] MEDS: GUAIFENESIN 600 MG TABLET.SA PO SCH ×2 (09:33→21:07)
[2020-12-07] MEDS: ENOXAPARIN SODIUM INJ 40 MG/0.4 ML DISP.SYRIN SUBCUT SCH (09:33)
[2020-12-07] MEDS: DEXAMETHASONE SOD PHOS INJ 10 MG/1 ML VIAL IV SCH (09:34)
[2020-12-07] MEDS ORDERED: METOPROLOL SUCCINATE 50 MG TAB.SR.24H PO SCH (10:00)
[2020-12-07] MEDS ORDERED: METOPROLOL SUCCINATE 50 MG PO SCH (10:00)
[2020-12-07] MEDS ORDERED: METOPROLOL TARTRATE 25 MG TABLET PO SCH (10:00)
[2020-12-07] MEDS: METHIMAZOLE 5 MG TABLET PO SCH (11:22)
[2020-12-07] MEDS ORDERED: IVERMECTIN 3 MG TABLET PO ONE (15:00)
[2020-12-07] MEDS ORDERED: LORAZEPAM 1 MG TABLET PO PRN (18:54)
--- NOTE | 2020-12-07 18:56 | PDOC PROGRESS REPORT ---
Subjective Date:: 12/07/20 Subjective:: NAEO. She does not require O2 at rest, but does desaturate with exertion. Reason For Visit: COVID PNEUMONIA, ACUTE HYPOXIC RESPIRATORY FAILURE Physical Exam Vital Signs: Temp Pulse Resp BP Pulse Ox 98.2 F 122 H 18 161/89 H 96 12/07/20 12:28 12/07/20 14:00 12/07/20 14:00 12/07/20 12:28 12/07/20 14:00 Intake & Output 12/06/20 12/07/20 12/08/20 06:59 06:59 06:59 Intake Total 200 Balance 200 Weight 64.6 kg General appearance: PRESENT: no acute distress, cooperative Eye exam: ABSENT: scleral icterus Mouth exam: PRESENT: moist Throat exam: ABSENT: post pharyngeal erythema Neck exam: ABSENT: JVD Respiratory exam: PRESENT: rhonchi, tachypnea. ABSENT: crackles, wheezes Cardiovascular exam: PRESENT: tachycardia GI/Abdominal exam: PRESENT: normal bowel sounds, soft. ABSENT: tenderness Gentrourinary exam: ABSENT: indwelling catheter Extremities exam: ABSENT: pedal edema Neurological exam: PRESENT: alert, awake Psychiatric exam: PRESENT: anxious Skin exam: ABSENT: jaundice Results Laboratory Results: 12/07/20 05:48 12/07/20 05:48 12/07/20 12/07/20 05:48 05:48 WBC 1.4 L* D RBC 4.90 Hgb 13.0 Hct 38.3 MCV 78 L MCH 26.5 L MCHC 34.0 RDW 14.2 H Plt Count 120 L Seg Neutrophils % Not Reportable Sodium 139.3 Potassium 3.8 Chloride 103 Carbon Dioxide 32 H Anion Gap 4 L BUN 20 Creatinine 0.46 L Est GFR ( Amer) > 60 Glucose 120 H Calcium 8.7 Ferritin 394.00 H Total Bilirubin 0.4 AST 92 H Alkaline Phosphatase 73 C-Reactive Protein 43.3 H Total Protein 5.9 L Albumin 3.3 L 12/06/20 16:58 Troponin I < 0.012 Impressions: Chest X-Ray 12/06/20 16:53 IMPRESSION: Elevated left hemidiaphragm. Cannot exclude a limited pneumonia in the left base. Scoliosis. Assessment and Plan - Diagnosis (1) Pneumonia due to COVID-19 virus Is this a current diagnosis for this admission?: Yes (2) Acute hypoxemic respiratory failure Is this a current diagnosis for this admission?: Yes (3) Hiatal hernia Is this a current diagnosis for this admission?: Yes (4) LFT elevation Is this a current diagnosis for this admission?: Yes (5) Leukopenia Is this a current diagnosis for this admission?: Yes (6) Anxiety Is this a current diagnosis for this admission?: Yes (7) Tachycardia Is this a current diagnosis for this admission?: Yes - Plan Summary Summary: ISABEL FLOR is a 55 year old female with severe cognitive impairment, sinus tachycardia, hiatal hernia, anxiety who presents to the ED from home due to low oxygen saturation at home. She and the rest of her family all tested positive for Covid on 11/29/2020. At home, she has had a dry cough and fevers to 101 F. Her family states that she has a fast heart rate and respiratory rate at baseline. They have been checking her oxygen saturations at home on a pulse oximeter, and she was saturating 89% on RA at rest, so they brought her in to be evaluated. In the ED, she has tachycardia and tachypnea. O2 saturation was 87-89% on RA and improved to mid-90s on 2L via NC. CXR showed possible LLL infiltrate. Pneumonia due to Covid-19 Acute Hypoxemic Respiratory Failure - continue azithromycin, ivermectin, dexamethasone, Vit C, Vit D, Zinc - wean off O2 as tolerated for goal saturation >92% Leukopenia - likely due to acute viral infection - repeat CBC daily LFT Elevation - likely due to acute viral infection - repeat CMP daily Sinus tachycardia - increase home metoprolol from 50 daily to BID Hiatal Hernia - restart home PPI BID Anxiety/Agitation - start home oral Ativan - fall precautions - consider sitter DVT ppx: Lovenox - Time Time Spent with patient: 35 or more minutes Anticipated Discharge Disposition: Home, Self Care Anticipated Discharge Timeframe: within 24 hours
[2020-12-08] MEDS: METOPROLOL SUCCINATE 50 MG TAB.SR.24H PO SCH ×2 (00:40→10:50)
[2020-12-08 06:02] LABS: HEMATOCRIT 41.4 % (36.0-47.0); HEMOGLOBIN 14.4 g/dL (12.0-15.5); MEAN CORPUSCULAR HEMOGLOBIN 27.3 pg (27.0-33.4); MEAN CORPUSCULAR HGB CONC 34.8 g/dL (32.0-36.0); MEAN CORPUSCULAR VOLUME 78 fl (80-97); PLATELET COUNT 166 10^3/uL (150-450); RED BLOOD COUNT 5.29 10^6/uL (3.72-5.28); RED CELL DISTRIBUTION WIDTH 14.5 % (11.5-14.0)
[2020-12-08 06:06] LABS: WHITE BLOOD COUNT 4.3 10^3/uL (4.0-10.5)
[2020-12-08 06:20] LABS: ALBUMIN 3.6 g/dL (3.5-5.0); ALKALINE PHOSPHATASE 84 U/L (38-126); ANION GAP 8 (5-19); ASPARTATE AMINO TRANSFERASE 81 U/L (14-36); BILIRUBIN,DIRECT 0.2 mg/dL (0.0-0.4); BILIRUBIN,TOTAL 0.7 mg/dL (0.2-1.3); C-REACTIVE PROTEIN 18.4 mg/L (<10.0); CALCIUM 9.2 mg/dL (8.4-10.2); CARBON DIOXIDE 28 mmol/L (22-30); CHLORIDE 99 mmol/L (98-107); GLUCOSE 96 mg/dL (75-110); POTASSIUM 3.8 mmol/L (3.6-5.0); TOTAL PROTEIN 6.2 g/dL (6.3-8.2)
[2020-12-08 06:24] LABS: BLOOD UREA NITROGEN 13 mg/dL (7-20)
[2020-12-08 06:39] LABS: ABSOLUTE LYMPHOCYTES# (MANUAL) 0.8 10^3/uL (0.5-4.7); ABSOLUTE MONOCYTES # (MANUAL) 0.6 10^3/uL (0.1-1.4); BASOPHILS % (MANUAL) 0 % (0-2); EOSINOPHILS % (MANUAL) 1 % (0-6); LYMPHOCYTES % (MANUAL) 16 % (13-45); MONOCYTES % (MANUAL) 13 % (3-13); SEGMENTED NEUTROPHILS % (MAN) 68 % (42-78); TOTAL CELLS COUNTED 100
[2020-12-08 06:40] LABS: OVALOCYTES SLIGHT; PLATELET COMMENT ADEQUATE; POIKILOCYTOSIS SLIGHT; POLYCHROMASIA SLIGHT
[2020-12-08] MEDS: PANTOPRAZOLE SODIUM 40 MG TABLET.DR PO SCH (06:41)
[2020-12-08] MEDS: ACETAMINOPHEN 325 MG TABLET PO SCH (06:41)
[2020-12-08] MEDS: IPRATROPIUM/ALBUTEROL 0.5-2.5 MG/3 ML AMPUL NEB SCH (08:51)
[2020-12-08] MEDS ORDERED: IVERMECTIN 3 MG TABLET PO ONE ×2 (10:00)
[2020-12-08] MEDS: ENOXAPARIN SODIUM INJ 40 MG/0.4 ML DISP.SYRIN SUBCUT SCH (10:43)
[2020-12-08] MEDS: GUAIFENESIN 600 MG TABLET.SA PO SCH (10:49)
[2020-12-08] MEDS: CHOLECALCIFEROL (D3) 1,000 UNIT (25 MCG) TABLET PO SCH (10:49)
[2020-12-08] MEDS: ZINC SULFATE 220 MG CAPSULE PO SCH (10:49)
[2020-12-08] MEDS: METHIMAZOLE 5 MG TABLET PO SCH (10:49)
[2020-12-08] MEDS: ASPIRIN 81 MG TABLET, ENT COATED PO SCH (10:50)
[2020-12-08] MEDS: ASCORBIC ACID 500 MG TABLET PO SCH (10:50)
[2020-12-08] MEDS: DEXAMETHASONE SOD PHOS INJ 10 MG/1 ML VIAL IV SCH (10:51)
[2020-12-08] MEDS: AZITHROMYCIN 250 MG TABLET PO SCH (10:51)
[2020-12-08 13:13] VITALS: BP 147/82
--- NOTE | 2020-12-08 15:08 | PDOC DISCHARGE SUMMARY ---
Impression - Admit/DC Date/PCP Admission Date/Primary Care Provider: 12/06/20 17:51 ARTURO SEGURA MD Discharge Date: 12/08/20 - Discharge Diagnosis (1) Pneumonia due to COVID-19 virus Is this a current diagnosis for this admission?: Yes (2) Acute hypoxemic respiratory failure Is this a current diagnosis for this admission?: Yes (3) Hiatal hernia Is this a current diagnosis for this admission?: Yes (4) LFT elevation Is this a current diagnosis for this admission?: Yes (5) Leukopenia Is this a current diagnosis for this admission?: Yes (6) Anxiety Is this a current diagnosis for this admission?: Yes (7) Tachycardia Is this a current diagnosis for this admission?: Yes - Assessment Summary: ISABEL FLOR is a 55 year old female with severe cognitive impairment, sinus tachycardia, hiatal hernia, anxiety who presents to the ED from home due to low oxygen saturation at home. She and the rest of her family all tested positive for Covid on 11/29/2020. At home, she has had a dry cough and fevers to 101 F. Her family states that she has a fast heart rate and respiratory rate at baseline. They have been checking her oxygen saturations at home on a pulse oximeter, and she was saturating 89% on RA at rest, so they brought her in to be evaluated. In the ED, she has tachycardia and tachypnea. O2 saturation was 87-89% on RA and improved to mid-90s on 2L via NC. CXR showed possible LLL infiltrate. Pneumonia due to Covid-19 c/b Acute Hypoxemic Respiratory Failure: she was treated with azithromycin, ivermectin x2, daily dexamethasone, Vit C, Vit D, Zinc. She was successfully weaned off O2. On the day of discharge, ambulatory oxygen saturations remained in the mid-90s on RA. Leukopenia: likely due to acute viral infection and resolved by discharge. LFT Elevation: likely due to acute viral infection. Sinus tachycardia: unknown etiology. Continue home metoprolol. Hiatal Hernia: continue home PPI BID. Anxiety/Agitation: continue home oral Ativan. - Additional Information Resuscitation Status: Do Not Resuscitate Discharge Diet: Regular Discharge Activity: Activity As Tolerated Referrals: ARTURO SEGURA MD [Primary Care Provider] - Follow up as needed (Office stated that patient has to make appointment after she gets over covid.) Home Medications: Lorazepam [Ativan 0.5 mg Tablet] 0.5 mg PO DAILYP PRN 12/06/20 Methimazole [Tapazole 5 mg Tablet] 5 mg PO DAILY 12/06/20 Metoprolol Succinate [Kapspargo Sprinkle] 50 mg PO DAILY 12/06/20 Pantoprazole Sodium [Protonix [address] Tablet] 40 mg PO BID 12/06/20 History of Present Illiness History of Present Illness: ISABEL FLOR is a 55 year old female with severe cognitive impairment, sinus tachycardia, hiatal hernia, anxiety who presents to the ED from home due to low oxygen saturation at home. She and the rest of her family all tested positive for Covid on 11/29/2020. At home, she has had a dry cough and fevers to 101 F. Her family states that she has a fast heart rate and respiratory rate at baseline. They have been checking her oxygen saturations at home on a pulse oximeter, and she was saturating 89% on RA at rest, so they brought her in to be evaluated. In the ED, she has tachycardia and tachypnea. O2 saturation was 87-89% on RA and improved to mid-90s on 2L via NC. CXR showed possible LLL infiltrate. Physical Exam Vital Signs: Temp Pulse Resp BP Pulse Ox 97.8 F 100 20 147/82 H 95 12/08/20 13:10 12/08/20 13:10 12/08/20 13:10 12/08/20 13:10 12/08/20 13:10 Intake & Output 12/07/20 12/08/20 12/09/20 06:59 06:59 06:59 Intake Total 200 1837 Output Total 600 Balance 200 1237 Weight 64.6 kg 64.6 kg Results Laboratory Results: WBC 4.3 10^3/uL (4.0-10.5) D 12/08/20 05:18 RBC 5.29 10^6/uL (3.72-5.28) H 12/08/20 05:18 Hgb 14.4 g/dL (12.0-15.5) 12/08/20 05:18 Hct 41.4 % (36.0-47.0) 12/08/20 05:18 MCV 78 fl (80-97) L 12/08/20 05:18 MCH 27.3 pg (27.0-33.4) 12/08/20 05:18 MCHC 34.8 g/dL (32.0-36.0) 12/08/20 05:18 RDW 14.5 % (11.5-14.0) H 12/08/20 05:18 Plt Count 166 10^3/uL (150-450) 12/08/20 05:18 Lymph % (Auto) Not Reportable 12/08/20 05:18 [place] % (Auto) Not Reportable 12/08/20 05:18 Eos % (Auto) Not Reportable 12/08/20 05:18 Baso % (Auto) Not Reportable 12/08/20 05:18 Absolute Neuts (auto) Not Reportable 12/08/20 05:18 Absolute Lymphs (auto) Not Reportable 12/08/20 05:18 Absolute Monos (auto) Not Reportable 12/08/20 05:18 Absolute Eos (auto) Not Reportable 12/08/20 05:18 Absolute Basos (auto) Not Reportable 12/08/20 05:18 Total Counted 100 12/08/20 05:18 Seg Neutrophils % Not Reportable 12/08/20 05:18 Seg Neuts % (Manual) 68 % (42-78) 12/08/20 05:18 Lymphocytes % (Manual) 16 % (13-45) 12/08/20 05:18 Atypical Lymphs % 2 % (0) 12/08/20 05:18 Monocytes % (Manual) 13 % (3-13) 12/08/20 05:18 Eosinophils % (Manual) 1 % (0-6) 12/08/20 05:18 Basophils % (Manual) 0 % (0-2) 12/08/20 05:18 Abs Neuts (Manual) 2.9 10^3/uL (1.7-8.2) 12/08/20 05:18 Abs Lymphs (Manual) 0.8 10^3/uL (0.5-4.7) 12/08/20 05:18 Abs Monocytes (Manual) 0.6 10^3/uL (0.1-1.4) 12/08/20 05:18 Absolute Eos (Manual) 0.0 10^3/uL (0.0-0.6) 12/08/20 05:18 Abs Basophils (Manual) 0.0 10^3/uL (0.0-0.2) 12/08/20 05:18 Platelet Comment ADEQUATE 12/08/20 05:18 Polychromasia SLIGHT 12/08/20 05:18 Poikilocytosis SLIGHT 12/08/20 05:18 Anisocytosis SLIGHT 12/07/20 05:48 Microcytosis SLIGHT 12/07/20 05:48 Ovalocytes SLIGHT 12/08/20 05:18 Fibrinogen 499 mg/dL (209-497) H 12/06/20 16:58 D-Dimer < 0.27 ug/mL (0.00-0.50) 12/06/20 16:58 VBG pH 7.44 (7.30-7.42) H 12/06/20 16:58 VBG pCO2 41.7 mmHg (35-63) 12/06/20 16:58 VBG HCO3 27.8 mmol/L (20-32) 12/06/20 16:58 VBG Base Excess 3.4 mmol/L 12/06/20 16:58 Sodium 135.4 mmol/L (137-145) L 12/08/20 05:18 Potassium 3.8 mmol/L (3.6-5.0) 12/08/20 05:18 Chloride 99 mmol/L (98-107) 12/08/20 05:18 Carbon Dioxide 28 mmol/L (22-30) 12/08/20 05:18 Anion Gap 8 (5-19) 12/08/20 05:18 BUN 13 mg/dL (7-20) 12/08/20 05:18 Creatinine 0.46 mg/dL (0.52-1.25) L 12/08/20 05:18 Est GFR ( Amer) > 60 (>60) 12/08/20 05:18 Est GFR (MDRD) Non-Af > 60 (>60) 12/08/20 05:18 Glucose 96 mg/dL (75-110) 12/08/20 05:18 Lactic Acid 0.8 mmol/L (0.7-2.1) 12/06/20 16:58 Calcium 9.2 mg/dL (8.4-10.2) 12/08/20 05:18 Ferritin 475.00 ng/mL (11.1-264.0) H 12/08/20 05:18 Total Bilirubin 0.7 mg/dL (0.2-1.3) 12/08/20 05:18 Direct Bilirubin 0.2 mg/dL (0.0-0.4) 12/08/20 05:18 Neonat Total Bilirubin Not Reportable 12/08/20 05:18 Neonat Direct Bilirubin Not Reportable 12/08/20 05:18 Neonat Indirect Bili Not Reportable 12/08/20 05:18 AST 81 U/L (14-36) H 12/08/20 05:18 ALT 73 U/L (<35) H 12/08/20 05:18 Alkaline Phosphatase 84 U/L (38-126) 12/08/20 05:18 Lactate Dehydrogenase 317 U/L (120-246) H 12/06/20 16:58 Troponin I < 0.012 ng/mL 12/06/20 16:58 C-Reactive Protein 18.4 mg/L (<10.0) H 12/08/20 05:18 Total Protein 6.2 g/dL (6.3-8.2) L 12/08/20 05:18 Albumin 3.6 g/dL (3.5-5.0) 12/08/20 05:18 Slides for Path Review SEE COMMENT 12/07/20 05:48 12/06/20 16:58 Troponin I < 0.012 Impressions: Chest X-Ray 12/06/20 16:53 IMPRESSION: Elevated left hemidiaphragm. Cannot exclude a limited pneumonia in the left base. Scoliosis. Stroke Is this a Stroke Patient?: No Acute Heart Failure Is this a Heart Failure Patient?: No
[2020-12-09] MEDS ORDERED: IVERMECTIN 3 MG TABLET PO ONE (10:00)
== END 2020-12-08 13:47 | disposition home or self-care (01) | DRG 177 ==
LOC: ER 15:59 → EH 17:51 → 3S 12-07 01:45
PROVIDERS: ADMIT Hospitalist; ATTEND Hospitalist
DX: U07.1 COVID-19 (principal); J12.82 Pneumonia due to coronavirus disease 2019; J96.01 Acute respiratory failure with hypoxia; K44.9 Diaphragmatic hernia without obstruction or gangrene; R79.89 Other specified abnormal findings of blood chemistry; D72.819 Decreased white blood cell count, unspecified; R00.0 Tachycardia, unspecified; Z66 Do not resuscitate; F41.1 Generalized anxiety disorder; I10 Essential (primary) hypertension; Z85.43 Personal history of malignant neoplasm of ovary
CPT/HCPCS: 36415; 71045; 80053; 82728; 82803; 83605; 83615; 84484; 85025; 85379; 85384; 86140; 87040; 87077; 87150; 99285; J1100; J1650; J3490